=== PATIENT | male | born 1960 | race Caucasian/White ===

== ENCOUNTER 2016-03-13 13:45 | Day surgery (SDC) | payer MEDICAID, OTHER ==
[2016-03-07 09:22] LABS: HEMATOCRIT 45.8 % (37.9-51.0); HEMOGLOBIN 15.4 g/dL (13.5-17.0); HGB HCT DIFFERENCE 0.4; MEAN CORPUSCULAR HEMOGLOBIN 31.2 pg (27.0-33.4); MEAN CORPUSCULAR HGB CONC 33.6 g/dL (32.0-36.0); MEAN CORPUSCULAR VOLUME 93 fl (80-97); RED BLOOD COUNT 4.95 10^6/uL (4.35-5.55); RED CELL DISTRIBUTION WIDTH 12.5 % (11.5-14.0); WHITE BLOOD COUNT 7.2 10^3/uL (4.0-10.5)
--- NOTE | 2016-03-07 12:54 | EKG REPORT ---
SEVERITY:- NORMAL ECG - SINUS RHYTHM : Confirmed by: Kaye Deleon MD 07-Mar-2016 12:54:04
[~2016-03-13 13:45] MED LIST: LACTATED RINGERS 1000 ML IV PRN; LIDOCAINE 1% INJ-PF (10 MG/ML) 30 ML SDV ONE; ROCURONIUM BROMIDE INJ 50 MG/5 ML VIAL IV ONE; SUCCINYLCHOLINE CHLORIDE INJ 200 MG/10 ML VIAL ONE
[2016-03-13] MEDS ORDERED: ALBUTEROL SULFATE 0.083% NEB 2.5 MG/3 ML AMPUL NEB ONE (14:00)
[2016-03-13] MEDS ORDERED: PROPOFOL INJ 200 MG/20 ML VIAL IV ONE (14:38)
[2016-03-13] MEDS ORDERED: KETAMINE HCL INJ 500 MG/10 ML VIAL ONE (14:38)
[2016-03-13] MEDS ORDERED: DEXMEDETOMIDINE INJ 80 MCG/20 ML VIAL IV ONE (14:38)
[2016-03-13] MEDS ORDERED: MIDAZOLAM 2 MG/2 ML INJ ONE (14:38)
[2016-03-13] MEDS ORDERED: CEFAZOLIN INJ 1 GM VIAL ONE (15:15)
[2016-03-13] MEDS ORDERED: MORPHINE SULFATE 10 MG/ML INJ IV PRN ×2 (15:34→16:27)
[2016-03-13] MEDS ORDERED: DIPHENHYDRAMINE HCL 50 MG/ML VIAL IV PRN (15:34)
[2016-03-13] MEDS ORDERED: FENTANYL CITRATE INJ/PF 100 MCG/2 ML AMPUL IV PRN ×3 (15:34)
[2016-03-13] MEDS ORDERED: MEPERIDINE HCL/PF INJ 25 MG/1 ML DISP.SYRIN IV PRN (15:34)
[2016-03-13] MEDS ORDERED: PROMETHAZINE HCL INJ 25 MG/1 ML VIAL IV PRN ×2 (15:34)
--- NOTE | 2016-03-13 16:24 | Operative Report ---
Operative Report DATE OF SURGERY: 03/13/16 PREOPERATIVE DIAGNOSIS: Multiple lipomas of the chest and back POSTOPERATIVE DIAGNOSIS: Same OPERATION: Operative excision of multiple lipomas includin. Right anterior chest wall, 2 cm. 2. Left anterior chest wall, 2 cm. 3. Right scapular area, 7 cm. 4. Right infrascapular area, 6 cm SURGEON: TANNA MARCIAL TEMPERATURE REGULATOR PYROMETER: FELICITA AGUAYO ANESTHESIA: GA TISSUE REMOVED OR ALTERED: Multiple lipomas COMPLICATIONS: None ESTIMATED BLOOD LOSS: scant INTRAOPERATIVE FINDINGS: See below PROCEDURE: He was seen in the preoperative holding area where 4 lipomas were marked on the patient: Including right supra dural area, left areolar area right scapular area and right subscapular area. Patient taken the operating room where general anesthesia was induced. He was placed in the left lateral Cubist position right side up. Right back and flank areas were prepped and draped in sterile fashion. Surgical plan and surgical time out conducted. The skin was anesthetized over the 2 palpable, previously marked lipomas on the back.. The right scapular lipoma was tackled first. Skin was incised horizontally with 3 kn centimeter incision with a #10 blade. The underlying fibrofatty, was excised in a piecemeal fashion using electrocautery. This was a very fibrotic irregular poorly circumscribed mass which required a lot of tugging and pulling to excise in a fragmented fashion all the way down to the fascia of the scapula. Wound was checked for bleeding and there was none. The lesion below the scapula was similarly excised after anesthetizing the skin. A 3 cm incision was made transversely over the lesion, and this was excised in its entirety very easily with blunt electrocautery dissection. It was not fibrotic in came out as a smooth encapsulated lipoma. Both back wounds were closed with 3-0 Vicryl and sara compression dressing was applied Patient was placed in the complete supine position and now anterior chest wall prepped and draped sterile fashion. One on the right chest above the nipple and 1 adjacent to the nipple on the left chest wall were anesthetized with quarter percent Marcaine. Small 2 cm incisions were made over both target lesions in a lipomas were shocked out with Tami clamps. His were closed with 3 -0 Vicryl benzoin and Steri-Strips. Postoperative procedure well extubated. The physician physiotherapist's assistant, Ms. Aguayo, provided assistance during this case by: , retracting tissue, instillation of local anesthesia and closure of skin incisions.
[2016-03-13] MEDS ORDERED: RINGERS SOLUTION,LACTATED 1,000 ML IV PRN (16:27)
[2016-03-13] MEDS ORDERED: KETOROLAC TROMETHAMINE 60 MG/2 ML SDV IM PRN (16:27)
[2016-03-13] MEDS ORDERED: OXYCODONE-ACETAMINOPHEN 5-325 MG TABLET PO PRN (16:27)
[2016-03-13] MEDS ORDERED: ONDANSETRON HCL INJ/PF 4 MG/2 ML SDV IV PRN (16:27)
--- NOTE | 2016-03-13 16:27 | PDOC DISCHARGE SUMMARY ---
Discharge Summary (SDC) - Discharge Final Diagnosis: Multiple lipomas on the torso Date of Surgery: 03/13/16 Discharge Date: 03/13/16 Condition: Good Treatment or Instructions: Patient to leave dressings on for 48 hours, then removed, then may shower. Patient to take prescribed pain medication. Patient will follow Dr. Caldera or WILIAN Mckeon, and [facility] in 1-2 weeks. Prescriptions: Oxycodone HCl/Acetaminophen [Percocet 5-325 mg Tablet] 1 tab PO ASDIR PRN #25 tab PRN Reason: Discharge Diet: As Tolerated Discharge Activity: Activity As Tolerated Home Care Assistance: None Needed Report the Following to Your Physician Immediately: Shortness of Breath, Increase in Pain, Fever over 101 Degrees - to the house when criteria met
[2016-03-13] MEDS ORDERED: LORAZEPAM INJ 2 MG/1 ML VIAL ONE (16:55)
[2016-03-13] MEDS: FENTANYL CITRATE INJ/PF 100 MCG/2 ML AMPUL ONE ×2 (17:10→17:20)
[2016-03-13 18:56] VITALS: BP 128/94
== END 2016-03-13 18:56 | disposition home or self-care (01) ==
LOC: OROUT 13:45
PROVIDERS: ATTEND Surgery
PROC: 0HB5XZX Excision of Chest Skin, External Approach, Diagnostic (ICD-10-PCS; principal; 2016-03-13 16:00)
DX: D17.1 Benign lipomatous neoplasm of skin and subcutaneous tissue of trunk (principal); J45.909 Unspecified asthma, uncomplicated; F31.9 Bipolar disorder, unspecified; M19.90 Unspecified osteoarthritis, unspecified site; F41.9 Anxiety disorder, unspecified; F90.9 Attention-deficit hyperactivity disorder, unspecified type; B19.20 Unspecified viral hepatitis C without hepatic coma; F17.210 Nicotine dependence, cigarettes, uncomplicated; Z88.5 Allergy status to narcotic agent; Z79.51 Long term (current) use of inhaled steroids; Z87.820 Personal history of traumatic brain injury; Z79.899 Other long term (current) drug therapy
CPT/HCPCS: 93005; 36415; 85027; 88304 ×2; 93010; 11406; J2250; J0690; J3490 ×3; J3010; J2060; J0330; J2704; 300

== ENCOUNTER → 2016-06-19 | Outpatient (CLI) | payer MEDICAID ==
[2016-06-22 08:43] LABS: HCV ALPHA 2-MACROGLOBULINS QNT 266 mg/dL (110-276); HCV FIBROSIS SCORE 0.43 (0.00-0.21); HCV FIBROSIS STAGE F1-F2 (.); HCV FIBROSURE ALT P5P 42 IU/L (0-55); HCV FIBROSURE GGT 38 IU/L (0-65); HCV FIBROSURE HAPTOGLOBIN 76 mg/dL (34-200); HCVFIB APOLIPOPROTEIN A-1 123 mg/dL (101-178); NECROINFLAM ACTIVITY GRADE A0-A1 (.); NECROINFLAMM ACTIVITY SCORE 0.27 (0.00-0.17)
== END ==
LOC: LAB 14:54
PROVIDERS: ATTEND Internal Medicine Gastroenterology
DX: B18.2 Chronic viral hepatitis C (principal)
CPT/HCPCS: 36415; 82172; 82247; 82977; 83010; 83883; 84460

== ENCOUNTER 2016-06-28 14:33 | Emergency (ER) | payer OTHER, MEDICAID ==
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
--- NOTE | 2016-06-28 16:12 | ER Document Report ---
ED Psych Disorder / Suicide - General Chief Complaint: Psych Problem Stated Complaint: RIGHT LEG PAIN Time Seen by Provider: 06/28/16 15:33 Notes: The patient is a 55-year-old male, past medical history schizophrenia, ADHD, presents with multiple complaints. He says that his name is Arya and that he feels like his neurotransmitters are crossed right now. He also complaining of swelling behind his left knee, which he has had for several months. He thinks that there is something implanted in the swelling. He has not taken his psychiatric medications for several months because he does not think that he needs them. He is tangential in conversation and sometimes will not directly answer questions. Denies headache, suicidal ideation, homicidal ideation, neck stiffness, blurry vision, focal weakness, numbness, tingling, chest pain, shortness of breath, fevers or rash TRAVEL OUTSIDE OF THE [place] IN LAST 30 DAYS: No - Related Data Allergies/Adverse Reactions: codeine [Codeine] Allergy (Verified 06/28/16 14:36) Past Medical History - General Information source: Patient - Social History Smoking Status: Current Every Day Smoker Family History: Reviewed & Not Pertinent Patient has suicidal ideation: No Patient has homicidal ideation: No - Past Medical History Cardiac Medical History: Denies: Hx Coronary Artery Disease, Hx Heart Attack, Hx Hypertension Pulmonary Medical History: Reports: Hx Bronchitis, Hx COPD Denies: Hx Asthma, Hx Pneumonia Neurological Medical History: Denies: Hx Cerebrovascular Accident, Hx Seizures Renal/ Medical History: Denies: Hx Peritoneal Dialysis Musculoskeltal Medical History: Reports Hx Arthritis - back Psychiatric Medical History: Reports: Hx Attention Deficit Hyperactivity Disorder Past Surgical History: Reports: Hx Orthopedic Surgery - throat/neck/left arm/ brain. Denies: Hx Pacemaker - Immunizations Hx Diphtheria, Pertussis, Tetanus Vaccination: No Review of Systems - Review of Systems Notes: REVIEW OF SYSTEMS: CONSTITUTIONAL: -fevers, -chills EENT: -eye pain, -difficulty swallowing, -nasal congestion CARDIOVASCULAR:-chest pain, -syncope. RESPIRATORY: -cough, -SOB GASTROINTESTINAL: -abdominal pain, - nausea, -vomiting, -diarrhea GENITOURINARY: -dysuria, -hematuria MUSCULOSKELETAL: +swelling behind right knee, -back pain, -neck pain SKIN: -rash or skin lesions. HEMATOLOGIC: -easy bruising or bleeding. LYMPHATIC: -swollen, enlarged glands. NEUROLOGICAL: -altered mental status or loss of consciousness, -headache, - neurologic symptoms PSYCHIATRIC: +delusions, -SI/HI ALL OTHER SYSTEMS REVIEWED AND NEGATIVE. Physical Exam - Vital signs Vitals: Temp Pulse Resp BP Pulse Ox 97.8 F 87 18 132/74 H 96 06/28/16 14:38 06/28/16 14:38 06/28/16 14:38 06/28/16 14:38 06/28/16 14:38 - Notes Notes: PHYSICAL EXAMINATION: GENERAL: Well-appearing, well-nourished and in no acute distress. HEAD: Atraumatic, normocephalic. EYES: Pupils equal round and reactive to light, extraocular movements intact, sclera anicteric, conjunctiva are normal. ENT: nares patent, oropharynx clear without exudates. Moist mucous membranes. NECK: Normal range of motion, supple without lymphadenopathy LUNGS: Breath sounds clear to auscultation bilaterally and equal. No wheezes rales or rhonchi. HEART: Regular rate and rhythm without murmurs ABDOMEN: Soft, nontender, normoactive bowel sounds. No guarding, no rebound. No masses appreciated. EXTREMITIES: Swelling behind left knee. Normal range of motion, no pitting or edema. No cyanosis. NEUROLOGICAL: Cranial nerves grossly intact. Normal speech, normal gait. Normal sensory, motor, and reflex exams. PSYCH: Tangential, paranoid, no SI or HI SKIN: Warm, Dry, normal turgor, no rashes or lesions noted. Course - Re-evaluation Re-evalutation: Pt with Callahan's Cyst behind left knee. Will have him f/u with Ortho to discuss treatment options. Pt very paranoid, tangential and has flight of ideas. He has been off of his psychiatric medicines for several months because he does not think that he needs them. Pt IVC'ed due to acute psychosis. - Vital Signs Vital signs: Temp Pulse Resp BP Pulse Ox 97.8 F 87 18 132/74 H 96 06/28/16 14:38 06/28/16 14:38 06/28/16 14:38 06/28/16 14:38 06/28/16 14:38 - Laboratory Result Diagrams: 06/28/16 15:55 06/28/16 15:55 Laboratory results interpreted by me: 06/28/16 06/28/16 15:55 15:55 BUN 22 H Urine Ascorbic Acid 40 H Salicylates < 1.0 L Acetaminophen < 10 L - EKG Interpretation by Me EKG shows normal: Sinus rhythm, [place], Intervals, QRS Complexes, ST-T Waves Discharge - Discharge Clinical Impression: Acute psychosis Bakers cyst Qualifiers: Laterality: left Qualified Code(s): M71.22 - Synovial cyst of popliteal space [ Callahan], left knee Condition: Serious Disposition: PSYCH HOSP/UNIT Additional Instructions: Follow-up with Orthopedic Surgery if your Callahan's cyst is bothering you to discuss removal. Referrals: AGUILAR ALVAREZ DO [Primary Care Provider] - Follow up as needed YOCASTA MOISE DO [ACTIVE STAFF] - Follow up as needed
[2016-06-28 16:30] LABS: ABSOLUTE EOSINOPHILS # (AUTO) 0.2 10^3/uL (0.0-0.6); ABSOLUTE LYMPHOCYTES (AUTO) 3.2 10^3/uL (0.5-4.7); ABSOLUTE MONOCYTES (AUTO) 0.6 10^3/uL (0.1-1.4); ABSOLUTE NEUT (AUTO) 5.3 10^3/uL (1.7-8.2); BASOPHILS % (AUTO) 0.4 % (0-2); EOSINOPHILS % (AUTO) 2.1 % (0-6); HEMATOCRIT 43.4 % (37.9-51.0); HGB HCT DIFFERENCE 1.6; LYMPHOCYTES % (AUTO) 34.5 % (13-45); MEAN CORPUSCULAR HEMOGLOBIN 31.5 pg (27.0-33.4); MEAN CORPUSCULAR HGB CONC 34.6 g/dL (32.0-36.0); MEAN CORPUSCULAR VOLUME 91 fl (80-97); MONOCYTES % (AUTO) 6.1 % (3-13); RED BLOOD COUNT 4.78 10^6/uL (4.35-5.55); RED CELL DISTRIBUTION WIDTH 12.5 % (11.5-14.0); SEGMENTED NEUTROPHILS % (AUTO) 56.9 % (42-78); WHITE BLOOD COUNT 9.3 10^3/uL (4.0-10.5)
[2016-06-28 16:34] LABS: APPEARANCE,URINE CLEAR; BILIRUBIN,URINE NEGATIVE (NEGATIVE); GLUCOSE, URINE NEGATIVE (NEGATIVE); KETONES,URINE NEGATIVE (NEGATIVE); LEUKOCYTE ESTERASE,URINE NEGATIVE (NEGATIVE); NITRITE,URINE NEGATIVE (NEGATIVE); PROTEIN,URINE NEGATIVE (NEGATIVE); URINE SPECIFIC GRAVITY 1.017; UROBILINOGEN,URINE NEGATIVE mg/dL (<2.0)
[2016-06-28 16:50] LABS: URINE BARBITURATES SCREEN NEGATIVE; URINE METHADONE SCREEN NEGATIVE; URINE OPIATES LOW NEGATIVE; URINE PHENCYCLIDINE SCREEN NEGATIVE
[2016-06-28 16:55] LABS: ALANINE AMINOTRANSFERASE 61 U/L (21-72); ALBUMIN 4.3 g/dL (3.5-5.0); ALKALINE PHOSPHATASE 44 U/L (38-126); ANION GAP 13 (5-19); ASPARTATE AMINO TRANSFERASE 39 U/L (17-59); BILIRUBIN,DIRECT 0.3 mg/dL (0.0-0.4); BILIRUBIN,TOTAL 0.5 mg/dL (0.2-1.3); BLOOD UREA NITROGEN 22 mg/dL (7-20); CALCIUM 9.2 mg/dL (8.4-10.2); CARBON DIOXIDE 23 mmol/L (22-30); CHLORIDE 106 mmol/L (98-107); CREATININE RESULT 0.85 mg/dL (0.52-1.25); GLUCOSE 104 mg/dL (75-110); POTASSIUM 4.1 mmol/L (3.6-5.0); SODIUM 142.1 mmol/L (137-145)
[2016-06-28 16:59] LABS: ALCOHOL < 10 mg/dL (NONE DETECTED)
[2016-06-28] MEDS ORDERED: NICOTINE 14 MG/24 HR PATCH.TD24 TD ONE (17:01)
[2016-06-28] MEDS ORDERED: BENZTROPINE MESYLATE INJ 2 MG/2 ML AMPULE IM SCH (17:30)
[2016-06-28] MEDS ORDERED: ZIPRASIDONE MESYLATE INJ/PF 20 MG SDV IM SCH ×2 (18:00)
[2016-06-28] MEDS ORDERED: BENZTROPINE MESYLATE INJ 2 MG/2 ML AMPULE IM ONE (18:00)
[2016-06-28] MEDS: CLONIDINE HCL 0.1 MG TABLET PO SCH (22:30)
[2016-06-29] MEDS: CHLORPROMAZINE HCL INJ 25 MG/1 ML AMPULE IM PRN ×3 (04:46→14:17)
[2016-06-29] MEDS: CLONIDINE HCL 0.1 MG TABLET PO SCH (04:47)
--- NOTE | 2016-06-29 10:55 | ER Document Report ---
Doctor's Note Notes: 06/29/16 10:54 I have evaluated this pt. this am and he has no c/o at this time. He feels all of his needs are being met and his physical exam is normal. He is awaiting dispositon per mental health.
--- NOTE | 2016-06-29 17:47 | EKG REPORT ---
SEVERITY:- NORMAL ECG - SINUS RHYTHM : Confirmed by: Kaye Deleon MD 29-Jun-2016 17:47:21
[2016-06-29] MEDS ORDERED: BENZTROPINE MESYLATE INJ 2 MG/2 ML AMPULE IM SCH (18:00)
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
[2016-06-29] MEDS: CHLORPROMAZINE HCL 25 MG TABLET PO SCH (19:50)
[2016-06-29] MEDS: BENZTROPINE MESYLATE 1 MG TABLET PO SCH (21:32)
[2016-06-30] MEDS: CHLORPROMAZINE HCL 25 MG TABLET PO SCH ×5 (00:13→22:50)
--- NOTE | 2016-06-30 09:37 | ER Document Report ---
Doctor's Note Notes: 06/30/16 09:37 I have evaluated this patient this am and has no c/o at this time. Feels all of their needs are being met and physical exam is normal. Awaiting dispositon per mental health.
[2016-06-30] MEDS: ZIPRASIDONE HCL 20 MG CAPSULE PO SCH (10:34)
[2016-06-30] MEDS: NICOTINE 7 MG/24 HR PATCH.TD24 TD SCH (10:34)
[2016-06-30] MEDS: CLONIDINE HCL 0.1 MG TABLET PO SCH (22:49)
[2016-06-30] MEDS: BENZTROPINE MESYLATE 1 MG TABLET PO SCH (22:49)
[2016-07-01] MEDS ORDERED: CHLORPROMAZINE HCL 25 MG TABLET ONE (06:26)
[2016-07-01] MEDS: CHLORPROMAZINE HCL 25 MG TABLET PO SCH ×2 (06:30→11:54)
[2016-07-01] MEDS: ZIPRASIDONE HCL 20 MG CAPSULE PO SCH (09:49)
[2016-07-01] MEDS: NICOTINE 7 MG/24 HR PATCH.TD24 TD SCH (10:14)
--- NOTE | 2016-07-01 11:47 | ER Document Report ---
Doctor's Note Notes: 07/01/16 11:46 I have evaluated this patient this am and has no c/o at this time. Feels all of their needs are being met and physical exam is normal. Awaiting dispositon per mental health. 07/01/16 16:[address] [facility] under the care of Dr. [place].
[2016-07-01 17:02] VITALS: BP 134/98
== END 2016-07-01 16:25 ==
LOC: ER 14:33
DX: F29 Unspecified psychosis not due to a substance or known physiological condition (principal); M71.22 Synovial cyst of popliteal space [Baker], left knee; M79.604 Pain in right leg; F17.200 Nicotine dependence, unspecified, uncomplicated; F90.9 Attention-deficit hyperactivity disorder, unspecified type; Z88.6 Allergy status to analgesic agent
CPT/HCPCS: 93005; 99285; 96372; 36415; 80307 ×4; 85025; 80053; 81001; 93010; J3490 ×9; J0515; J3230; J3486

== ENCOUNTER → 2017-11-06 | Outpatient (CLI) | payer MEDICAID ==
--- NOTE | 2017-11-06 09:10 | RADIOLOGY REPORT (SQ) ---
EXAM DESCRIPTION: LUMBAR SPINE COMPLETE COMPLETED DATE/TIME: 11/06/2017 9:00 am REASON FOR STUDY: DJD M51.37 OTHER INTERVERTEBRAL DISC DEGENERATION, LUMBOSACRAL R COMPARISON: None. NUMBER OF VIEWS: Five views including obliques. TECHNIQUE: AP, lateral, oblique, and sacral radiographic images acquired of the lumbar spine. LIMITATIONS: None. FINDINGS: MINERALIZATION: Normal. SEGMENTATION: Normal. No transitional anatomy. ALIGNMENT: Normal. VERTEBRAE: Maintained height. No fracture or worrisome bone lesion. DISCS: Moderate severe to marked narrowing at L5-S1 with small anterior osteophytes. POSTERIOR ELEMENTS: Pedicles and facets are intact. No pars defect or posterior arch defects. HARDWARE: None in the spine. PARASPINAL SOFT TISSUES: Normal. PELVIS: Intact as visualized. No fractures or worrisome bone lesions. SI joints intact. OTHER: Slight atherosclerotic changes involving the abdominal aorta. IMPRESSION: 1. Degenerative moderate severe to marked disc disease at L5-S1. 2. No acute osseous findings. TECHNICAL DOCUMENTATION: JOB ID: [id number] [employer]- All Rights Reserved Reading location - IP/workstation name: [email or web address]
== END ==
LOC: OD 08:46
PROVIDERS: ATTEND Family Medicine
DX: M51.37 Other intervertebral disc degeneration, lumbosacral region (principal)
CPT/HCPCS: 72110

== ENCOUNTER 2018-08-30 10:20 | Emergency (ER) | payer MEDICAID ==
[2018-08-30 10:24] VITALS: BP 131/86
--- NOTE | 2018-08-30 10:36 | ER Document Report ---
HPI - HPI Time Seen by Provider: 08/30/18 10:32 Pain Level: 4 Notes: Patient is a 57-year-old male with no significant past medical history who presents complaining of left lateral ankle pain status post injury prior to arrival. Patient states that he stepped into a hole and heard his ankle "pop." Patient has no swelling and has been limping since then. He is able to eat and drink without difficulty otherwise. He has no other concerns or complaints. No surgical history to his ankle or foot before. Denies any headache, fever, head injury, neck pain, URI, sore throat, chest pain, palpitations, syncope, cough, shortness of breath, wheeze, dyspnea, abdominal pain, nausea/vomiting/diarrhea, urinary retention, dysuria, hematuria, loss of control of bowel or bladder, numbness/tingling, muscle paralysis, or rash. - ROS Systems Reviewed and Negative: Yes All other systems reviewed and negative Past Medical History - Social History Smoking Status: Current Every Day Smoker Family History: Reviewed & Not Pertinent - Past Medical History Cardiac Medical History: Denies: Hx Coronary Artery Disease, Hx Heart Attack, Hx Hypertension Pulmonary Medical History: Reports: Hx Bronchitis, Hx COPD Denies: Hx Asthma, Hx Pneumonia Neurological Medical History: Denies: Hx Cerebrovascular Accident, Hx Seizures Renal/ Medical History: Denies: Hx Peritoneal Dialysis Musculoskeletal Medical History: Reports Hx Arthritis - back Psychiatric Medical History: Reports: Hx Attention Deficit Hyperactivity Disorder Past Surgical History: Reports: Hx Orthopedic Surgery - throat/neck/left arm/brain. Denies: Hx Pacemaker - Immunizations Hx Diphtheria, Pertussis, Tetanus Vaccination: No Vertical Provider Document - CONSTITUTIONAL Agree With Documented VS: Yes Notes: PHYSICAL EXAMINATION: GENERAL: Well-appearing, well-nourished and in no acute distress. LUNGS: Breath sounds clear to auscultation bilaterally and equal. No wheezes rales or rhonchi. HEART: Regular rate and rhythm without murmurs, rubs, gallops. Musculoskeletal: Lt foot/ankle: + lateral ankle swelling with associated tenderness to the lateral malleolus. No deformity. LROM to passive/active dorsiflexion. Strength 5+/5. N/V intact distal. No bony tenderness of the foot. Achilles intact. Lis Franc maneuver neg. Anterior drawer neg. Extremities: No cyanosis, clubbing, or edema b/l. Peripheral pulses 2+. Capillary refill less than 3 seconds. NEUROLOGICAL: Normal speech, limping gait. Normal sensory, motor exams PSYCH: Normal mood, normal affect. SKIN: Warm, Dry, normal turgor, no rashes or lesions noted. - INFECTION CONTROL TRAVEL OUTSIDE OF THE [place] IN LAST 30 DAYS: No Course - Re-evaluation Re-evalutation: 08/30/18 Patient is an afebrile, well-hydrated, 57-year-old male who presents to the ED with left ankle pain which I suspect to be a sprain versus strain. Vitals are acceptable without any significant tachycardia, tachypnea, or hypoxia. PE is otherwise unremarkable for any neurovascular compromise, obvious tendon/ligament rupture, obvious fracture/dislocation, septic joint. X-ray was unremarkable for any acute pathology. Ankle stirrup and crutches were provided today. Patient declined any Tylenol/motrin. Ice provided. Patient is nontoxic-appearing. Patient is able to ambulate and weight-bear although he is limping. No other labs or imaging warranted at this time based on H&P. Conservative measures otherwise for symptoms. Recheck with your PCM in 3-5 days. Consider consult orthopedics. Return to the ED with any worsening/concerning symptoms otherwise as reviewed in discharge. Patient is in agreement. - Vital Signs Vital signs: Temp Pulse Resp BP Pulse Ox 98.2 F 103 H 20 131/86 H 96 08/30/18 10:23 08/30/18 10:23 08/30/18 10:23 08/30/18 10:23 08/30/18 10:23 Discharge - Discharge Clinical Impression: Left ankle pain Qualifiers: Chronicity: acute Qualified Code(s): M25.572 - Pain in left ankle and joints of left foot Condition: Stable Disposition: HOME, SELF-CARE Additional Instructions: Rest, Ice, Compression, Elevation Use crutches/splint as directed Tylenol/ibuprofen as needed Light stretches daily Strength exercises as able Moist heat and massage may help F/u with your PCP in 3-5 days for a recheck Consider consult(s) with Orthopedics/physical therapy for ongoing/worsening symptoms Return to the ED with any worsening symptoms and/or development of fever, headache, chest pain, palpitations, syncope, shortness of breath, trouble breathing, abdominal pain, n/v/d, muscle weakness/paralysis, numbness/tingling, swelling, redness, or other worsening symptoms that are concerning to you. Prescriptions: Naproxen 500 mg PO BID #10 tablet Forms: Elevated Blood Pressure, Smoking Cessation Education Referrals: AGUILAR ALVAREZ DO [Primary Care Provider] - Follow up as needed [facility] [Provider Group] - Follow up as needed
--- NOTE | 2018-08-30 11:13 | RADIOLOGY REPORT (SQ) ---
EXAM DESCRIPTION: ANKLE LEFT COMPLETE COMPLETED DATE/TIME: 08/30/2018 10:41 am REASON FOR STUDY: left lateral ankle pain s/p injury COMPARISON: None. NUMBER OF VIEWS: Three views. TECHNIQUE: AP, lateral, and oblique radiographic images acquired of the left ankle. LIMITATIONS: None. FINDINGS: MINERALIZATION: Normal. BONES: No acute fracture or dislocation. No worrisome bone lesions. JOINTS: No effusions. SOFT TISSUES: Lateral soft tissue swelling. No foreign body. OTHER: No other significant finding. IMPRESSION: LATERAL SOFT TISSUE SWELLING. NO FRACTURE. TECHNICAL DOCUMENTATION: JOB ID: [id number] [employer]- All Rights Reserved Reading location - IP/workstation name: [email or web address]
== END 2018-08-30 11:41 | disposition home or self-care (01) ==
LOC: ER 10:20
DX: M25.572 Pain in left ankle and joints of left foot (principal); M25.472 Effusion, left ankle; F17.200 Nicotine dependence, unspecified, uncomplicated
CPT/HCPCS: 99283; 73610; L1902

== ENCOUNTER → 2019-03-26 | Outpatient (CLI) | payer MEDICAID ==
--- NOTE | 2019-03-26 14:24 | RADIOLOGY REPORT (SQ) ---
EXAM DESCRIPTION: CHEST PA/LATERAL COMPLETED DATE/TIME: 03/26/2019 10:53 am REASON FOR STUDY: CHRONIC OBSTRUCTIVE PULMONARY DISEASE W (ACUTE) EXACERBATION COMPARISON: None. TECHNIQUE: Frontal and lateral radiographic views of the chest acquired. NUMBER OF VIEWS: Two view. LIMITATIONS: None. FINDINGS: LUNGS AND PLEURA: No opacities, masses or pneumothorax. No pleural effusion. MEDIASTINUM AND HILAR STRUCTURES: No masses or contour abnormalities. HEART AND VASCULAR STRUCTURES: Heart normal size. No evidence for failure. BONES: No acute findings. HARDWARE: None in the chest. OTHER: No other significant finding. IMPRESSION: NO SIGNIFICANT RADIOGRAPHIC FINDING IN THE CHEST. TECHNICAL DOCUMENTATION: JOB ID: [id number] 2010 [employer]- All Rights Reserved Reading location - IP/workstation name: [email or web address]
== END ==
LOC: OD 10:44
PROVIDERS: ATTEND Nurse Practitioner Family
DX: J44.1 Chronic obstructive pulmonary disease with (acute) exacerbation (principal)
CPT/HCPCS: 71046

== ENCOUNTER → 2019-04-26 | Outpatient (CLI) | payer MEDICAID ==
--- NOTE | 2019-04-26 13:31 | RADIOLOGY REPORT (SQ) ---
EXAM DESCRIPTION: CT LUNG CANCER SCREENING COMPLETED DATE/TIME: 04/26/2019 12:54 pm REASON FOR STUDY: Z12.2 ENCNTR SCREEN FOR MALIGNANT NEOPLASM OF RESPIRATORY ORGANS Z12.2 ENCNTR SCR EEN FOR MALIGNANT NEOPLASM OF RESPIRATORY OR Has the patient had a Chest CT scan within the past year? N Was the patient offered tobacco cessation counseling? Y Was the patient engaged in shared decision making for this test? Y Does the patient have signs or symptoms of Lung Cancer? N Is the patient a smoker? Y How many pack years? 45Y How many years since quitting smoking? 0 Patients age: 58 COMPARISON: 2014. TECHNIQUE: Low Dose CT scan performed of the chest without intravenous contrast for purposes of scre ening for lung cancer. Images reviewed with lung, soft tissue and bone windows. Reconstructed coron al and sagittal MPR images reviewed. All images stored on PACS. All CT scanners at this facility use dose modulation, iterative reconstruction, and/or weight based d osing when appropriate to reduce radiation dose to as low as reasonably achievable (ALARA). [facility]: Dose Right [facility]: CareDose [facility]: Dose Right [facility]: Teradose 4D [facility]: Smart [employer] RADIATION DOSE: CT Rad equipment meets quality standard of care and radiation dose reduction techniq ues were employed. CTDIvol: NaN mGy. DLP: 0 mGy-cm. mGy. . LIMITATIONS: None FINDINGS: LUNGS AND PLEURA: No masses or nodules. No pleural effusions or calcifications. No pne umothorax. Mild linear scarring in the right lower lobe. HILAR AND MEDIASTINAL STRUCTURES: No identified masses. No abnormal nodes. HEART AND VASCULAR STRUCTURES: No aortic aneurysm. No pericardial effusion. No cardiac devices. CORONARY ARTERY CALCIFICATIONS: No significant calcifications. UPPER ABDOMEN, THYROID, BONES, OTHER SOFT TISSUES: No significant findings. IMPRESSION: NO SIGNIFICANT FINDING IN THE LUNGS ON NON-CONTRASTED CHEST CT. NO OTHER CLINICALLY SIGNIFICANT/POTENTIALLY CLINICALLY SIGNIFICANT FINDINGS LUNGRADS: LUNGRADS: 1 NEGATIVE. NO NODULES, OR DEFINITELY BENIGN NODULES MODIFIER: NONE RECOMMENDATION: Continue annual screening with LDCT in 12 months. COMMENT: CRITERIA: No lung nodules. Nodules with specific calcifications: Complete, central, popcorn, concentric rings and fat containin g nodules. TECHNICAL DOCUMENTATION: JOB ID: [id number] Quality ID # [id number]: Final reports with documentation of one or more dose reduction techniques (e.g., Au tomated exposure control, adjustment of the mA and/or kV according to patient size, use of iterative reconstruction technique) 2010 [facility] Reading location - IP/workstation name: [email or web address]
== END ==
LOC: RAD 12:31
PROVIDERS: ATTEND Nurse Practitioner Family
DX: Z12.2 Encounter for screening for malignant neoplasm of respiratory organs (principal)
CPT/HCPCS: G0297

== ENCOUNTER 2019-04-28 09:29 | Day surgery (SDC) | payer MEDICAID ==
[2019-04-19 10:00] LABS: HEMATOCRIT 46.6 % (37.9-51.0); HEMOGLOBIN 16.4 g/dL (13.5-17.0); MEAN CORPUSCULAR HEMOGLOBIN 31.8 pg (27.0-33.4); MEAN CORPUSCULAR HGB CONC 35.2 g/dL (32.0-36.0); MEAN CORPUSCULAR VOLUME 90 fl (80-97); PLATELET COUNT 301 10^3/uL (150-450); RED BLOOD COUNT 5.16 10^6/uL (4.35-5.55); RED CELL DISTRIBUTION WIDTH 12.7 % (11.5-14.0); WHITE BLOOD COUNT 9.3 10^3/uL (4.0-10.5)
--- NOTE | 2019-04-19 10:20 | RADIOLOGY REPORT (SQ) ---
EXAM DESCRIPTION: CHEST PA/LATERAL COMPLETED DATE/TIME: 04/19/2019 9:58 am REASON FOR STUDY: PRE-OP COMPARISON: 03/26/2019 EXAM PARAMETERS: NUMBER OF VIEWS: two views TECHNIQUE: Digital Frontal and Lateral radiographic views of the chest acquired. RADIATION DOSE: NA LIMITATIONS: none FINDINGS: LUNGS AND PLEURA: No opacities, masses or pneumothorax. No pleural effusion. Azygos lobe, right upper lobe, normal anatomic variant. MEDIASTINUM AND HILAR STRUCTURES: No masses or contour abnormalities. HEART AND VASCULAR STRUCTURES: Heart normal size. No evidence for failure. BONES: No acute findings. HARDWARE: None in the chest. OTHER: No other significant finding. IMPRESSION: 1. No significant interval changes since the prior examination dated 03/26/2019. No acu te findings. TECHNICAL DOCUMENTATION: JOB ID: [id number] 2010 [employer]- All Rights Reserved Reading location - IP/workstation name: [email or web address]
[2019-04-19 10:40] LABS: ANION GAP 13 (5-19); BLOOD UREA NITROGEN 13 mg/dL (7-20); CARBON DIOXIDE 25 mmol/L (22-30); CHLORIDE 100 mmol/L (98-107); GLUCOSE 123 mg/dL (75-110)
[2019-04-19 10:41] LABS: CALCIUM 9.3 mg/dL (8.4-10.2)
--- NOTE | 2019-04-20 12:06 | EKG REPORT ---
SEVERITY:- BORDERLINE ECG - SINUS RHYTHM BORDERLINE T ABNORMALITIES, INFERIOR LEADS : Confirmed by: Davion Vences 20-Apr-2019 12:05:27
[~2019-04-28 09:29] MED LIST changes: +CEFAZOLIN 1 GM/D5W RTU 1 GM/50 ML RTUPB IV PRN; +LIDOCAINE 0.5% INJ-PF (5 MG/ML) 50 ML SDV SUBCUT PRN; -LIDOCAINE 1% INJ-PF (10 MG/ML) 30 ML SDV ONE; -ROCURONIUM BROMIDE INJ 50 MG/5 ML VIAL IV ONE; -SUCCINYLCHOLINE CHLORIDE INJ 200 MG/10 ML VIAL ONE
[2019-04-28] MEDS ORDERED: KETOROLAC TROMETHAMINE 60 MG/2 ML SDV ONE (09:32)
[2019-04-28] MEDS ORDERED: SUCCINYLCHOLINE CHLORIDE INJ 200 MG/10 ML VIAL ONE (09:32)
[2019-04-28] MEDS ORDERED: DEXAMETHASONE SOD PHOSPHATE INJ 4 MG/1 ML VIAL ONE (09:32)
[2019-04-28] MEDS ORDERED: ONDANSETRON HCL INJ/PF 4 MG/2 ML SDV ONE (09:32)
[2019-04-28] MEDS ORDERED: ROCURONIUM BROMIDE INJ 50 MG/5 ML VIAL IV ONE (09:32)
[2019-04-28] MEDS ORDERED: CEFAZOLIN 1 GM/D5W RTU 1 GM/50 ML RTUPB IV ONE (10:06)
[2019-04-28] MEDS ORDERED: HYDROMORPHONE HCL INJ/PF 2 MG/ML AMPULE ONE (10:13)
[2019-04-28] MEDS ORDERED: PROPOFOL INJ 200 MG/20 ML VIAL IV ONE (10:14)
[2019-04-28] MEDS ORDERED: MIDAZOLAM 2 MG/2 ML INJ ONE (10:14)
[2019-04-28] MEDS ORDERED: FENTANYL CITRATE INJ/PF 100 MCG/2 ML AMPUL ONE (10:14)
[2019-04-28] MEDS ORDERED: BUPIVACAINE INJ/PF LIPOSOME/PF 266 MG/20 ML SDV ONE (12:16)
[2019-04-28] MEDS ORDERED: BUPIVACAINE HCL 0.25 % INJ/PF (2.5 MG/1 ML) 30 ML VIAL ONE (12:16)
[2019-04-28] MEDS ORDERED: MORPHINE SULFATE 10 MG/ML INJ IV PRN (12:53)
[2019-04-28] MEDS ORDERED: FENTANYL CITRATE INJ/PF 100 MCG/2 ML AMPUL IV PRN ×3 (12:53)
[2019-04-28] MEDS ORDERED: MEPERIDINE HCL/PF INJ 25 MG/1 ML DISP.SYRIN IV PRN (12:53)
[2019-04-28] MEDS ORDERED: DIPHENHYDRAMINE HCL 50 MG/ML VIAL IV PRN (12:53)
[2019-04-28] MEDS ORDERED: ONDANSETRON HCL INJ/PF 4 MG/2 ML SDV IV PRN (12:53)
--- NOTE | 2019-04-28 13:51 | Operative Report ---
Operative Report DATE OF SURGERY: 04/28/19 PREOPERATIVE DIAGNOSIS: 1. Umbilical hernia. 2. COPD. 3. Active smoker POSTOPERATIVE DIAGNOSIS: Same OPERATION: 1. Local exploration, excision of local hernia sac. 2. Umbilical herniorrhaphy, with Bard VENTRALIGHT ST 4.5 inch installed in extraperitoneal position SURGEON: TANNA WILHELM ANESTHESIA: LMAC TISSUE REMOVED OR ALTERED: See below COMPLICATIONS: None ESTIMATED BLOOD LOSS: Scant INTRAOPERATIVE FINDINGS: See below PROCEDURE: Patient was taken to the preop holding area to the main operating room and general anesthesia was induced. Arms were abducted, abdomen clipped of hair, prepped draped sterile fashion with Betadine Surgical plan and surgical timeout were conducted. The skin was anesthetized with 1% plain lidocaine. An infraumbilical 3 and half to 4 cm incision was made on the inferior aspect of the umbilicus skin. Subcutaneous tissue was divided, and the underlying hernia sac was dissected free from the billable skin. A small hole was made in the center of the umbilical skin. The level of dissection was taken all the way down to the anterior abdominal wall fascia. The subcutaneous tissue was elevated off of the fascia in a circumferential fashion to expose the fascia for future suture placement. At this point the hernia sac was entered. Peritoneal contents were freed from the peritoneal side of the sac. I now opened the plane between the hernia sac and the anterior abdominal wall fascia. I worked in a circumferential fashion, using a combination of blunt, scissors and electrocautery dissection, to open the retroperitoneal space. Once we felt a suitable compartment had been developed, I closed the Nunda sac with a running 0 Vicryl suture. Small portion of the sac was excised and disposed of. We now brought onto the field a non- ventral light ST Bard mesh, 4.5 inches in diameter. It was oriented so the smooth side was towards the peritoneum. Loop sutures were placed at the 12, 3, 6, 9:00 positions using 0 PDS suture, grabbing the fascia then the mesh and then coming back out the fascia. Stitches were placed at the respective positions in the full-thickness fascia. The mesh was manipulated and positioned into the retroperitoneal space. All sutures were pulled up and not secured, thereby securing the mesh into position. We were satisfied with the final result. No significant bleeding. The fascia was now closed transversely with a running 0 PDS suture. We now closed the subcutaneous tissue, and brought the umbilicus back to the center with a 3-0 Vicryl suture. Skin glue applied to the final skin incision, Exparel 20 cc full-strength deployed in the subcutaneous tissue, and a bulky dressing of 4 x 4's and tape applied. Patient had an abdominal binder placed. He was then extubated, taken recovery room in stable condition. The physician auction assistant, Ms. Aguayo, provided assistance during this case by: Assisting retracting tissue, instillation of local anesthesia and closure of skin incisions.
--- NOTE | 2019-04-28 14:00 | Discharge Summary ---
Discharge Summary (SDC) - Discharge Final Diagnosis: umbilical hernia Date of Surgery: 04/28/19 Discharge Date: 04/28/19 Condition: Good Treatment or Instructions: [facility] [address], [place] [address] Discharge Instructions: Open Abdominal Procedures (Hernia, Bowel Surgery) 1.General Information: a. DO NOT DRIVE a car or operative machinery for 1week. b. DO NOT consume alcohol, tranquilizers, sleeping medication, or any non- prescribed medication for 24 hours unless approved by your doctor or as long as taking pain medication. c. DO NOT make important decisions or sign any important papers for the first 24 hours after surgery. d. When discharged home the same day as surgery have a responsible person with you the first night. 2.Activity Restriction: 6 weeks a. Avoid heavy lifting (> 10-15 lbs), straining abdominal muscles and sports, mowing lawn, vacuum strainer cleaner and bending over a lot. b. Walking is important to avoid blood clots in the legs and deep breathing can prevent pneumonia. c. If it fine to go for walks, up and down steps, and ride in a car. 3.Treatment: a. You may shower 48 hours after surgery and shower then daily is fine, but you should not bathe in a tub or go swimming for 2 weeks. Remove outer gauze dressing but leave skin glue intact. Do not scrub incision. Pat dry and re cover with gauze and tape if needed b. Wear abdominal binder daily. c. Do not use oils, powders, or lotion on your incision. 4.Medications: a. You may take prescription tablets for pain if needed, one every 4 hours (Toradol_). b. Do not take additional NSAIDs with Toradol. You may supplement with Tylenol. c. You may resume all normal medications unless a change is specified by your doctors. 5.Diet: a. If going home the same day as surgery start with clear liquids, and if you do well then advance to normal foods low inf fat and protein. Smaller portion size may be gordon the first night. b. When discharged after hospital stay you may resume a normal diet. 6.Notify Physician If: a. Pain is not relieved by pain medication b. Persistent nausea and vomiting c. Chills, fever (above 101) d. Persistent bleeding or swelling at the operative site e. Unable to urinate for 6-8 hours f. Increased redness, drainage, or foul smelling discharge from incision 7. Follow Up Care: a. Please call our office to schedule an appointment with your doctor for 2 weeks. In the event of any postoperative problems or questions you may call our office during business hours or the On-Call surgeon through the rougher machine operator at [facility]. [facility] [phone] [facility] [phone] (Ask for the surgeon loan operations manager) b. I understand the instructions for my postoperative care as described above and a copy has been given to me. Witness Patient/Significant Other Date Prescriptions: Ketorolac Tromethamine [Toradol 10 mg Tablet] 10 mg PO Q6HP PRN #20 tablet PRN Reason: Referrals: AGUILAR ALVAREZ DO [Primary Care Provider] - Discharge Diet: As Tolerated Discharge Activity: No Lifting Over 10 Pounds, No Lifting/Push/Pulling, No tub bath, Walk Frequently Report the Following to Your Physician Immediately: Nausea, Vomiting, Increase in Pain, Fever over 101 Degrees, Unusual Bleeding, Redness, Swelling, Warmth, Increased Soreness, Drainage-Foul Smelling
[2019-04-28 15:58] VITALS: BP 144/95
== END 2019-04-28 15:40 | disposition home or self-care (01) ==
LOC: OROUT 09:29
PROVIDERS: ATTEND Surgery
DX: K42.9 Umbilical hernia without obstruction or gangrene (principal); Z88.5 Allergy status to narcotic agent; J44.9 Chronic obstructive pulmonary disease, unspecified; B19.20 Unspecified viral hepatitis C without hepatic coma; F17.210 Nicotine dependence, cigarettes, uncomplicated; Z79.51 Long term (current) use of inhaled steroids; Z79.899 Other long term (current) drug therapy; Z87.820 Personal history of traumatic brain injury
CPT/HCPCS: 93005; 36415; 85027; 80048; 71046; 93010; 49585; C1781; J2250; J0690; J3490 ×2; J1100; J1885; J1170; J0330; J2405; J2704; C9290; 830; J3010

== ENCOUNTER 2019-05-17 13:45 | Emergency (ER) | payer MEDICAID ==
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
[2019-05-17 14:33] VITALS: BP 138/61
[2019-05-17 15:03] LABS: A TYPE INFLUENZA AG NEGATIVE (NEGATIVE); B INFLUENZA AG NEGATIVE (NEGATIVE)
== END 2019-05-17 15:49 | disposition home or self-care (01) ==
LOC: EDRDC 13:45
DX: J44.9 Chronic obstructive pulmonary disease, unspecified (principal); Z20.828 Contact with and (suspected) exposure to other viral communicable diseases; R05 Cough; M79.10 Myalgia, unspecified site; R50.9 Fever, unspecified; R51 Headache; J02.9 Acute pharyngitis, unspecified; F17.200 Nicotine dependence, unspecified, uncomplicated
CPT/HCPCS: 87070; 87635; 87804; 87880; 99211